=== PATIENT | female | born 1940 | race Caucasian/White ===

== ENCOUNTER → 2016-10-28 | Outpatient (CLI) | payer MEDICARE | END | disposition home or self-care (01) | LOC: GMAL 12:09 | PROVIDERS: ATTEND Family Medicine | DX: D51.3 Other dietary vitamin B12 deficiency anemia (principal); E55.9 Vitamin D deficiency, unspecified ==

== ENCOUNTER → 2017-01-22 | Outpatient (CLI) | payer MEDICARE | END | disposition home or self-care (01) | LOC: GMAL 10:50 | PROVIDERS: ATTEND Family Medicine | DX: D51.3 Other dietary vitamin B12 deficiency anemia (principal); E55.9 Vitamin D deficiency, unspecified ==

== ENCOUNTER → 2017-01-29 | Outpatient (CLI) | payer MEDICARE ==
--- NOTE | 2017-01-31 12:07 | MAM ---
EXAM DESCRIPTION: 3D Screening BILATERAL CLINICAL HISTORY: 76 years Female SCREENING no complaints. No family history of breast cancer. Postmenopausal. No HRT. "Right lumpectomy". COMPARISON: 3-D screening bilateral digital examination 10/20/2014 and 12/31/2012.. No prior reports available. TECHNIQUE: Bilateral CC and MLO projection full-field images, 3-D tomosynthesis digital mammographic technique. Also bilateral synthesized CC/ MLO full-field images. CAD not utilized. FINDINGS: The breast parenchymal density pattern is: Scattered areas of fibroglandular density. No skin thickening or nipple retraction bilateral multiple solitary microcalcifications. Bilateral axillary lymph nodes. Group of coarse and microcalcifications in the middle third of the left breast at the 900 clock position. Nearby intramammary lymph node. Stable retroareolar lymph node left. Bilateral vascular calcifications. No focal, stellate mass or density, focal asymmetry , and no suspicious microcalcifications bilaterally. Stable mammograms compared to prior study (December 2012), taking into account differences in mammographic technique IMPRESSION: BI-RADS CATEGORY: 2 - BENIGN FINDINGS. FOLLOW UP: Routine digital bilateral screening, one year interval from January 2017. BI-RADS CATEGORY: 3 PROBABLY BENIGN. Management: Short interval (6-month) follow-up or continued surveillance. Written communication explaining the results and follow-up will be mailed to the patient and referring care provider Written communication explaining the IMPRESSION and follow-up, will be mailed to the patient and referring health care provider. According to the [employer], yearly mammograms are recommended starting at age 40 and continuing as long as a woman is in good health. Any breast change noted on a breast self-exam should be reported promptly to the patient's healthcare provider. Breast MRI is recommended for women with an approximately 20-25% or greater lifetime risk of breast cancer, including women with a strong family history of breast or ovarian cancer and women who have been treated for Hodgkin's disease. A negative mammographic report should not delay tissue diagnosis in patients with significant clinical history or physical findings. Extremely dense breast tissue limits the sensitivity of digital mammography. Electronically signed by: James Cabrera MD 01/31/2017 12:06 PM CDT
== END | disposition home or self-care (01) ==
LOC: MAMMO 10:13
PROVIDERS: ATTEND Family Medicine
DX: Z12.31 Encounter for screening mammogram for malignant neoplasm of breast (principal)
CPT/HCPCS: 77063; G0202

== ENCOUNTER → 2018-02-09 | Outpatient (CLI) | payer MEDICARE ==
--- NOTE | 2018-02-10 08:50 | MAM ---
EXAM DESCRIPTION: 3D Screening BILATERAL : Digital Mammography. CLINICAL HISTORY: 77 years Female SCREENING . No complaints. No personal or family history of breast cancer. Childbirth. Postmenopausal 28 years. No HRT. Prior right benign breast biopsy. Lifetime risk of developing breast cancer (Tyrer-Cuzick model)(%): 12%. COMPARISON: Bilateral screening digital breast tomosynthesis 01/29/2017.. TECHNIQUE: Bilateral CC and MLO projection full-field images, Digital tomosynthesis mammographic technique. Bilateral digital 2-D full-field MLO images. CAD not utilized. FINDINGS: The breast parenchymal density pattern is: Scattered areas of fibroglandular density. No skin thickening or nipple retraction. Bilateral scattered microcalcifications and coarse calcifications. Right axillary lymph nodes are not as well seen on today's examination. Microcalcifications and coarse calcifications associated with mammographic density again noted in the middle third of the left breast at the 9:00 position and abutting the posterior nipple line.. Reduced number of left axillary lymph nodes on the current study. No new focal, stellate mass or density, focal asymmetry , and no suspicious microcalcifications bilaterally. Stable mammograms compared to prior study. Taking into account, differences in mammographic technique. IMPRESSION: Benign exam. BIRAD CATEGORY: 2 BENIGN FINDINGS. RECOMMENDATIONS: FOLLOW UP: Routine digital bilateral screening, one year interval from January 2018. Written communication explaining the IMPRESSION and follow-up, will be mailed to the patient and referring health care provider. According to the [employer], yearly mammograms are recommended starting at age 40 and continuing as long as a woman is in good health. Any breast change noted on a breast self-exam should be reported promptly to the patient's healthcare provider. Breast MRI is recommended for women with an approximately 20-25% or greater lifetime risk of breast cancer, including women with a strong family history of breast or ovarian cancer and women who have been treated for Hodgkin's disease. A negative mammographic report should not delay tissue diagnosis in patients with significant clinical history or physical findings. Extremely dense breast tissue limits the sensitivity of digital mammography. Electronically signed by: James Cabrera MD 02/10/2018 8:49 AM CDT
== END ==
LOC: MAMMO 11:30
PROVIDERS: ATTEND Family Medicine
DX: Z12.31 Encounter for screening mammogram for malignant neoplasm of breast (principal)

== ENCOUNTER 2018-09-21 05:36 | Day surgery (SDC) | payer MEDICARE ==
[2018-09-21] MEDS ORDERED: MOXIFLOXACIN HCL (OPHTH) 1 DROP DROPS ONE (06:07)
[2018-09-21] MEDS ORDERED: TROP 1%/CYCLOPEN 1%/PHENYL 2% DROPS ONE (06:08)
[2018-09-21] MEDS: PROPARACAINE 0.5% OPHTH SOL 15 ML BTTL ONE (12:05)
[2018-09-21] MEDS: LIDOCAINE 1% MPF 2 ML VIAL INJ ONE ×2 (12:10→12:14)
[2018-09-21] MEDS ORDERED: MIDAZOLAM INJ 2 MG/2 ML VIAL ONE ×2 (12:10→12:13)
[2018-09-21] MEDS: DEXAMETHASONE 0.1% OPHTH SOL 1 DROP RIGHT_EYE ONE ×2 (12:11→12:30)
[2018-09-21] MEDS: BRIMONIDINE 0.2% OPHTH DROPS RIGHT_EYE ONE ×2 (12:11→12:30)
[2018-09-21] MEDS: TOBRAMYCIN-DEXAMETH OPHTH SOL 1 DROP RIGHT_EYE ONE ×2 (12:11→12:30)
[2018-09-21] MEDS: MOXIFLOXACIN HCL (OPHTH) 1 DROP DROPS RIGHT_EYE ONE ×2 (12:11→12:30)
== END 2018-09-21 13:00 | disposition home or self-care (01) ==
LOC: AMB 05:36
PROVIDERS: ATTEND Ophthalmology
DX: H25.11 Age-related nuclear cataract, right eye (principal); E11.36 Type 2 diabetes mellitus with diabetic cataract; Z79.84 Long term (current) use of oral hypoglycemic drugs
CPT/HCPCS: 00142; 36416; 66984; 82948; J2250

== ENCOUNTER → 2019-12-06 | Outpatient (CLI) | payer MEDICARE | LOC: GMAL 14:50 | PROVIDERS: ATTEND Family Medicine | DX: D51.3 Other dietary vitamin B12 deficiency anemia (principal); E55.9 Vitamin D deficiency, unspecified; R53.83 Other fatigue; E11.9 Type 2 diabetes mellitus without complications; Z79.899 Other long term (current) drug therapy ==

== ENCOUNTER 2020-01-12 05:20 | Day surgery (SDC) | payer MEDICARE ==
[2020-01-12] MEDS ORDERED: LACTATED RINGERS 1,000 ML ONE (06:27)
[2020-01-12] MEDS ORDERED: PROPOFOL 200 MG/20 ML VIAL IV ONE (07:00)
[2020-01-12] MEDS ORDERED: LIDOCAINE 1% 10 ML VIAL INJ ONE (07:00)
--- NOTE | 2020-01-12 09:27 | OP ---
DATE OF PROCEDURE: 01/12/20 PREOPERATIVE DIAGNOSIS: 1. Average risk colorectal cancer screening, last colonoscopy was 2005. POSTOPERATIVE DIAGNOSIS: 1. Two colonic polyps. 2. Diverticulosis. 3. Internal hemorrhoids. PROCEDURE: 1. Colonoscopy plus polypectomy. SURGEON: Camden Judd MD. COMPLICATIONS: None apparent. BLOOD LOSS: None. MEDICATIONS: Monitored anesthesia care. DESCRIPTION OF PROCEDURE: Informed consent was obtained prior to sedation. The preprocedure cardiopulmonary assessment was satisfactory. The patient was placed in the left lateral decubitus position and was sedated. A digital rectal exam was unremarkable. The tip of the Olympus colonoscope was inserted in the rectum and guided over to the cecum. The cecum was identified by locating the ileocecal valve and appendiceal orifice. Prep was excellent. There was a [place] Bowel Prep Score of 9. Retroflexed view of the right colon was obtained. Following this maneuver, the mucosa of the cecum, ascending colon, hepatic flexure, transverse colon, splenic flexure, descending colon and sigmoid colon was closely examined on withdrawal of the scope. Direct and retroflexed views of the rectum were obtained. There were two tiny polyps seen. They were both 2 mm in size. One was in the ascending colon and the other was in the proximal transverse colon. Both of these were removed with a cold snare and recovered. There were sigmoid diverticula seen. There were small internal hemorrhoids. Otherwise, colonoscopy was unremarkable. RECOMMENDATIONS: 1. Followup the polyp pathology. 2. The patient does not need any followup colon cancer screening because she is now 79. #[id number] cc: Hu Hatfield MD MTDD
[2020-01-12 09:55] VITALS: BP 150/86; TEMP 97.6; O2SAT 100
== END 2020-01-12 09:50 | disposition home or self-care (01) ==
LOC: AMB 05:20
PROVIDERS: ATTEND Internal Medicine Gastroenterology
DX: Z12.11 Encounter for screening for malignant neoplasm of colon (principal); D12.2 Benign neoplasm of ascending colon; D12.3 Benign neoplasm of transverse colon; K57.30 Diverticulosis of large intestine without perforation or abscess without bleeding; K64.8 Other hemorrhoids; E11.9 Type 2 diabetes mellitus without complications; Z79.84 Long term (current) use of oral hypoglycemic drugs
CPT/HCPCS: 00812; 36416; 45385; 82948; 88305; J3490; J7120

== ENCOUNTER → 2020-01-24 | Outpatient (CLI) | payer MEDICARE | LOC: GMAL 14:27 | PROVIDERS: ATTEND Family Medicine | DX: N30.00 Acute cystitis without hematuria (principal) ==